=== PATIENT | male | born 1975 | race Caucasian/White ===

== ENCOUNTER 2017-05-30 06:27 | Emergency (ER) | payer BC ==
[2017-05-30 08:10] VITALS: BP 137/88
--- NOTE | 2017-06-20 19:11 | ED ---
Vidya Ball Edward, scribed for Franklyn Denis MD on 05/30/17 at 0805 . Complex/Multi-Sys Presentation - HPI Summary HPI Summary: 41 y/o male presents to he ED c/o severe dental pain. Pt states he has a dental abscess and shattered teeth at his upper jaw on the R side. The pain extends from his jew down to his neck. It started as mild pain one week ago and became severe in the last 48 hours. Denies fever. Associated sx: R ear pain. The pain is aggravated with eating and opening his mouth. The area is also sensitive to hot and cold liquids. Pt has been taking Ibuprofen to alleviate pain. - History Of Current Complaint Chief Complaint: EDDentalPain Hx Obtained From: Patient Onset/Duration: Lasting Weeks Timing: Constant Severity Initially: Severe Location: Pain At: - Upper R side mouth Associated Signs And Symptoms: Positive: Other - negative - Allergies/Home Medications Allergies/Adverse Reactions: Allergies Allergy/AdvReac Type Severity Reaction Status Date / Time No Known Allergies Allergy Verified 05/30/17 06:30 PMH/Surg Hx/FS Hx/Imm Hx Previously Healthy: No Endocrine/Hematology History: Denies: Hx Diabetes Cardiovascular History: Denies: Hx Hypertension - Surgical History Surgery Procedure, Year, and Place: None Infectious Disease History: No Infectious Disease History: Denies: Traveled Outside the [place] in Last 30 Days - Social History Alcohol Use: None Hx Substance Use: Yes Substance Use Type: Reports: Marijuana Hx Tobacco Use: Yes Smoking Status (MU): Former Smoker Review of Systems Constitutional: Negative Eyes: Negative Positive: Dental Pain, Ear Ache - R Cardiovascular: Negative Respiratory: Negative Gastrointestinal: Negative Genitourinary: Negative Musculoskeletal: Negative Skin: Negative Neurological: Negative Psychological: Normal All Other Systems Reviewed And Are Negative: Yes Physical Exam - Summary Physical Exam Summary: Appearance: Well-appearing, Well-nourished Skin: Warm, Dry, No rash Eyes: Normal, PERRL, EOMI, sclera anicteric ENT: Normal. R TM Normal. Dental: Remarkable @ R upper jaw - posterior molar with fractured tooth and tooth that looks fractured and rotted. Not much surrounding erythema or swelling. Neck: Supple, nontender. No adenopathy. Respiratory: Clear to auscultation Cardiovascular: S1, S2, no murmur, no rub, no gallop Abdomen: Soft, nontender, no organomegaly Bowel sounds: Present Musculoskeletal: Normal, Strength/ROM Intact, no edema, pulses symmetrical Neurological: Normal, A&Ox3, cranial nerves II-XII WNL, follows commands, gait not tested, sensation intact to pin and light touch Psychiatric: affect normal, behavior appropriate, dressed appropriately, judgment intact Triage Information Reviewed: Yes Vital Signs On Initial Exam: Initial Vitals Temp Pulse Resp BP Pulse Ox 97.8 F 79 16 135/86 99 05/30/17 06:29 05/30/17 06:29 05/30/17 06:29 05/30/17 06:29 05/30/17 06:29 Vital Signs Reviewed: Yes Diagnostics - Vital Signs Vital Signs Temp Pulse Resp BP Pulse Ox 05/30/17 06:29 97.8 F 79 16 135/86 99 - Laboratory Lab Statement: Any lab studies that have been ordered have been reviewed, and results considered in the medical decision making process. Complex Multi-Symp Course/Dx Assessment/Plan: 41 y/o male presents to he ED c/o severe dental pain. Pt states he has a dental abscess and shattered teeth at his upper jaw on the R side. The pain extends from his jew down to his neck. It started as mild pain one week ago and became severe in the last 48 hours. Denies fever. Associated sx: R ear pain. The pain is aggravated with eating and opening his mouth. The area is also sensitive to hot and cold liquids. Pt has been taking Ibuprofen to alleviate pain. - Diagnoses Provider Diagnoses: Dental caries, possible dental abscess Discharge - Discharge Plan Condition: Fair Disposition: HOME Prescriptions: Amoxicillin PO (*) [Amoxicillin 875 MG (*)] 875 mg PO BID 7 Days #14 tab oxyCODONE/Acetamin 5/325 MG* [Percocet 5/325 TAB*] 1 tab PO Q6H PRN 6 Days #24 tab NS MDD 4 PRN Reason: Pain (Dental) Patient Education Materials: Dental Abscess (ED) Referrals: Agustín Hong MD [Primary Care Provider] - Additional Instructions: dental evaluation The documentation as recorded by the Vidya arias Edward accurately reflects the service I personally performed and the decisions made by me, Franklyn Denis MD.
== END 2017-05-30 09:07 | disposition home or self-care (01) ==
LOC: ED 06:27
DX: K02.9 Dental caries, unspecified (principal); Z87.891 Personal history of nicotine dependence
CPT/HCPCS: 99282